=== PATIENT | female | born 1950 | race Caucasian/White ===

== ENCOUNTER → 2016-08-13 | Outpatient (CLI) | payer MEDICARE, BC ==
--- NOTE | 2016-08-13 10:17 | KCIC ---
PROCEDURE Complete abdominal ultrasound HISTORY Abdomen pain. Upper abdominal pain and nausea for 6 months. COMPARISON None FINDINGS Pancreas appears unremarkable. Liver is unremarkable. Gallbladder demonstrates no evidence of cholelithiasis or gallbladder wall thickening. Common bile duct measures 4 millimeters. Right kidney measures 10.5 cm longitudinal without hydronephrosis. There appears to be some cortical thinning of the right kidney. Aorta is ectatic but non aneurysmal. Left kidney measures 9.6 cm longitudinal without hydronephrosis. Spleen is poorly visualized IMPRESSION 1. No sonographic gallbladder pathology. 2. There may be some cortical thinning or cortical atrophy of the right kidney. Electronically signed by: Jorge Vergara MD (Aug 13, 2016 10:16:07)
== END | disposition home or self-care (01) ==
LOC: KCIC US 09:01
PROVIDERS: ATTEND Nurse Practitioner Family
DX: R10.9 Unspecified abdominal pain (principal); R11.0 Nausea
CPT/HCPCS: 76700